=== PATIENT | female | born 1970 | race American Indian/Alaskan Native ===

== ENCOUNTER 2018-01-15 17:18 | Emergency (ER) | payer MEDICAID ==
[2018-01-15 17:47] VITALS: BP 152/110; PULSE 92; RESP 20; TEMP 97.9; O2SAT 98
[2018-01-15 17:53] VITALS: BMI 22.8
--- NOTE | 2018-01-15 18:34 | C.PDOC ---
History Of Present Illness 47 y/o female presents to the ED complaining of intermittent muscular discomfort to the left trapezius and shoulder for five days. The patient reports using heating therapy that only made the pain worse. She denies experiencing any trauma or injury. The patient also denies any numbness, weakness or tingling. Time Seen by Provider: 01/15/18 18:18 Chief Complaint (Nursing): Upper Extremity Problem/Injury History/Exam Limitations: no limitations Onset/Duration Of Symptoms: Days Current Symptoms Are (Timing): Still Present Quality: "Pain" Recent travel outside of the [place]: No Past Medical History Reviewed: Historical Data, Nursing Documentation, Vital Signs Vital Signs: Last Vital Signs Temp 97.9 F 01/15/18 17:46 Pulse 92 H 01/15/18 17:46 Resp 20 01/15/18 17:46 BP 152/110 H 01/15/18 17:46 Pulse Ox 98 01/15/18 18:34 - Medical History PMH: No Chronic Diseases Other Surgeries: Uterine fibroids removed Family History: States: Unknown Family Hx - Social History Hx Alcohol Use: No Hx Substance Use: No - Immunization History Hx Tetanus Toxoid Vaccination: No Hx Influenza Vaccination: No Hx Pneumococcal Vaccination: No Review Of Systems Except As Marked, All Systems Reviewed And Found Negative. Constitutional: Negative for: Fever Musculoskeletal: Positive for: Shoulder Pain, Other (left trapezius pain) Skin: Negative for: Bruising Neurological: Negative for: Weakness, Numbness, Other (tingling) Physical Exam - Physical Exam Appears: Well, Non-toxic, No Acute Distress Skin: Normal Color, Warm, Rash Head: Atraumatic, Normacephalic Eye(s): bilateral: PERRL, EOMI Ear(s): Bilateral: Normal Oral Mucosa: Moist Neck: Normal ROM Chest: Symmetrical Cardiovascular: Rhythm Regular, No Murmur Respiratory: Normal Breath Sounds, No Rales, No Rhonchi, No Wheezing Gastrointestinal/Abdominal: Soft, No Tenderness, No Distention Extremity: Normal ROM, Tenderness (to left trapezius area), Swelling (to left trapezius area), No Other (no significant arm edema) Pulses: Left Radial: Normal, Right Radial: Normal Neurological/Psych: Oriented x3, Normal Speech ED Course And Treatment O2 Sat by Pulse Oximetry: 98 (RA) Pulse Ox Interpretation: Normal Medical Decision Making Medical Decision Making: L trapezius strain/sprain worse with heating pad therapy no shoulder injury LOW susp of DVT Disposition Doctor Will See Patient In The: Office Counseled Patient/Family Regarding: Studies Performed, Diagnosis - Disposition Referrals: Marbella Posey DO [[facility]] - Disposition: HOME/ ROUTINE Disposition Time: 18:34 Condition: GOOD Additional Instructions: ice packs 1/2 hour per hour, nothing hot no hot showers for 2 days throw away your heating pad Motrin/Advil 400-600 mg every 6 hours as needed for pain/swelling Instructions: Muscle Strain (DC) Forms: [employer] (French) - Clinical Impression Clinical Impression: Muscle strain - PA / INSPECTOR TOOL / Resident Statement / has reviewed & agrees with the documentation as recorded. - Scribe Statement The provider has reviewed the documentation as recorded by the Scribe (Martha Aggarwal) Provider Attestation: All medical record entries made by the Scribe were at my direction and personally dictated by me. I have reviewed the chart and agree that the record accurately reflects my personal performance of the history, physical exam, medical decision making, and the department course for this patient. I have also personally directed, reviewed, and agree with the discharge instructions and disposition.
--- NOTE | 2018-01-16 17:58 | CARD ---
APPROVED REPORT Date of service: 01/15/2018 EKG Measurement Heart [id number] <Conclusion> Normal sinus rhythm with sinus arrhythmia Possible Left atrial enlargement Borderline ECG
== END 2018-01-15 18:39 | disposition home or self-care (01) ==
LOC: C.ER 17:18
DX: S46.912A Strain of unspecified muscle, fascia and tendon at shoulder and upper arm level, left arm, initial encounter (principal); X58.XXXA Exposure to other specified factors, initial encounter